=== PATIENT | male | born 1965 | race Caucasian/White ===

== ENCOUNTER 2016-06-10 10:40 | Emergency (ER) | payer MEDICAID ==
[~2016-06-10] VITALS: Ht 170.2 cm; Wt 80.0 kg
[2016-06-10 10:45] VITALS: BP 125/75; PULSE 108; RESP 16; TEMP 98; O2SAT 97
[2016-06-10] MEDS ORDERED: ALBUAER3 INH (11:30)
[2016-06-10] MEDS ORDERED: AMLO5TAB2 PO (11:30)
[2016-06-10] MEDS ORDERED: SYMB80AE INH (11:30)
[2016-06-10] MEDS ORDERED: SIMV40TA PO (11:30)
[2016-06-10] MEDS ORDERED: ALPR.25 PO (11:30)
[2016-06-10] MEDS ORDERED: ADDE10 PO (11:30)
[2016-06-10] MEDS ORDERED: VENTAER INH (11:44)
[2016-06-10] MEDS ORDERED: AZIT250T3 PO (11:44)
[2016-06-10] MEDS ORDERED: PROM6.256 PO (11:45)
--- NOTE | 2016-06-10 11:45 | PD ---
HPI Chief Complaint: Injury Time Seen by Provider: 11:39 Travel History International Travel<30 days: No Contact w/Intl Traveler<30days: No Traveled to known affect area: No History of Present Illness HPI Patient is a 51-year-old male presenting to the emergency department for evaluation of right hand pain as well as cough and cold symptoms. Patient states that a large tree branch fell on his right hand 3 days ago. 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 He denies any numbness or tingling, weakness. Patient states his cough is been ongoing for 5- 6 days, nonproductive, associated with a sore throat that is worse in the morning and improves throughout the day. He also reports the cough is worse at night when he is laying down. Patient has a history of asthma and is occurring daily tobacco user. He denies any wheezing, chest pain, shortness of breath, fever, chills, headache. PFSH Past Medical History ADD: Yes Asthma: Yes High Cholesterol: Yes COPD: Yes Hypertension: Yes Influenza Vaccination: No Social History Alcohol Use: No Tobacco Use: Yes (1 03/16 PPD) Substance Use: No Allergies-Medications (Allergen,Severity, Reaction): Coded Allergies: No Known Allergies (Unverified , 06/10/16) Reported Meds & Prescriptions Reported Meds & Active Scripts Active Lortab (Hydrocodone-Acetaminophen) 5-325 Mg Tab 1 Tab PO Q6H PRN Azithromycin 250 Mg Tab 250 Mg PO DIRECTED Take 2 tabs (500 mg) on day 1 then 1 tab daily x 4 days. Ventolin Hfa 18 GM Inh (Albuterol Sulfate) 90 Mcg/Act Aer 2 Puff INH Q4-6H PRN Reported Xanax (Alprazolam) 0.25 Mg Tab 0.25 Mg PO Q8H PRN Adderall (Amphetamine-Dextroamphetamine) 10 Mg Tab 10 Mg PO DIRECTED Take 10 mg in the morning & 5 mg (1/2 tab) at noon. Symbicort Inh (Budesonide/Formoterol Fumarate) 80-4.5 Mcg/Act Aero 1 Puff INH Q12HR Proair Hfa 8.5 GM Inh (Albuterol Sulfate) 90 Mcg/Act Aer 1 Puff INH Q4H PRN 108 mcg/actuation Simvastatin 40 Mg Tab 40 Mg PO HS Amlodipine (Amlodipine Besylate) 5 Mg Tab 5 Mg PO DAILY Review of Systems Except as stated in HPI: all other systems reviewed are Neg General / Constitutional: No: Fever, Chills HENT: Positive: Sore Throat, Rhinitis, No: Headaches Cardiovascular: No: Chest Pain or Discomfort Respiratory: Positive: Cough, No: Shortness of Breath, Wheezing, Pleuritic Pain Gastrointestinal: No: Nausea, Vomiting, Abdominal Pain Musculoskeletal: Positive: Myalgias, Arthralgias, Limited ROM, Edema, Pain Neurologic: No: Weakness, Dizziness, Syncope Physical Exam Narrative GENERAL: Well-developed, well-nourished, alert male. Resting comfortably in no acute distress. SKIN: Focused skin assessment warm/dry. HEAD: Atraumatic. Normocephalic. EYES: Pupils equal and round. No scleral icterus. No injection or drainage. ENT: No nasal bleeding or discharge. Mucous membranes pink and moist. Cobblestone appearance to posterior pharynx. NECK: Trachea midline. No JVD. CARDIOVASCULAR: Regular rate and rhythm. No murmur appreciated. RESPIRATORY: No accessory muscle use. Clear to auscultation. Breath sounds equal bilaterally. GASTROINTESTINAL: Abdomen soft, non-tender, nondistended. Hepatic and splenic margins not palpable. MUSCULOSKELETAL: No obvious deformities. No clubbing. No cyanosis. Edema noted to the dorsal aspect of the right hand over the second through fourth MCP. Decreased rocket engine tester strength on the right. Positive radial pulse, brisk less than 3 second capillary refill. NEUROLOGICAL: Awake and alert. No obvious cranial nerve deficits. Motor grossly within normal limits. Normal speech. PSYCHIATRIC: Appropriate mood and affect; insight and judgment normal. Data Data Last Documented VS Vital Signs Date Time Temp Pulse Resp B/P Pulse Ox O2 Delivery O2 Flow Rate FiO2 06/10/16 10:45 98.0 108 16 125/75 97 Orders Hand, Complete ([id number]) (06/10/16 ) [facility] Medical Decision Making Medical Screen Exam Complete: Yes Emergency Medical Condition: Yes Interpretation(s) Vital Signs Date Time Temp Pulse Resp B/P Pulse Ox O2 Delivery O2 Flow Rate FiO2 06/10/16 10:45 98.0 108 16 125/75 97 Differential Diagnosis Viral syndrome versus bronchitis versus asthma exacerbation versus upper respiratory infection versus fracture versus sprain versus strain versus contusion Narrative Course Patient is a 51-year-old male presenting to the emergency department for evaluation of cough and right hand pain. Physical exam revealed an edematous right hand with decreased rocket engine tester strength. Patient is neurovascularly intact. Additionally patient's exam appears most consistent with a viral upper respiratory infection however he is a smoker with a history of asthma, COPD. Patient will be provided with prescription for antibiotics as well as cough medication, and albuterol inhaler. Imaging of the right hand ordered and pending. X-ray of the right hand does not show any obvious fracture, patient needed to leave the emergency department to picker tender a friend. He was advised that the official read from the radiologist was not available at this time. X-ray was also reviewed by my attending physician. Patient was advised that if a fracture was identified by the radiologist he would be notified to return to emergency department for splinting. Patient was placed in an Bennett wrap for support. Patient verbalized understanding of these instructions. He was also encouraged to alternate heat and ice to the affected area, continue range of motion exercises, and avoid exacerbating activities. Patient is stable for discharge. After patient left the emergency department the official read on the right hand x-ray shows no acute fracture. Diagnosis Primary Impression: Upper respiratory infection Qualified Code: J06.9 - Upper respiratory tract infection, unspecified type Additional Impression: Hand contusion Qualified Code: S60.221A - Contusion of right hand, initial encounter Referrals: Primary Care Physician 1 week Patient Instructions: General Instructions, Upper Respiratory Infection (ED) Additional Instructions: Follow-up with your primary doctor Complete full course of antibiotics as directed Obtain achs-hni-kyiegua Mucinex DM or Sudafed or similar agent and use as directed and as needed Alternate heat and ice to the affected area Maintain adequate fluid intake Return to emergency department for any new or worsening symptoms Do not drive or operate heavy machinery while taking narcotic pain medication Med/Other Pt SpecificInfo: Prescription(s) given Scripts Hydrocodone-Acetaminophen (Lortab)5-325 Mg Tab1 Tab PO Q6H PRN (PAIN) #10 TAB Prov:Zahra Russo MD 06/10/16 Azithromycin 250 Mg [id number] Mg PO DIRECTED #6 TAB Ref 0 Take 2 tabs (500 mg) on day 1 then 1 tab daily x 4 days. Prov:Angeles Torre 06/10/16 Albuterol 18 GM Inh (Ventolin Hfa 18 GM Inh)90 Mcg/Act Aer2 Puff INH Q4-6H PRN ( SHORTNESS OF BREATH) #1 INHALER Ref 0 Prov:Angeles Torre 06/10/16 Disposition: 01 DISCHARGE HOME Condition: Stable Angeles Torre Jun 10, 2016 11:45
[2016-06-10] MEDS ORDERED: HYDR-3533 PO (12:43)
--- NOTE | 2016-06-10 12:55 | RADHPO ---
EXAM DATE/TIME: 06/10/2016 11:15 [place] COMPARISON: No previous studies available for comparison. INDICATIONS : Right hand pain and swelling mostly 4th-5th metacarpal area, tree limb fell on right hand. MEDICAL HISTORY : None. SURGICAL HISTORY : None. ENCOUNTER: Initial ACUITY: 3 days PAIN SCORE: 6/10 LOCATION: Right hand FINDINGS: There is no evidence of acute fracture. Bony mineralization is normal. 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 There is mild osteoarthritis involving the radiocarpal yaneli nt. CONCLUSION: 1. There is no evidence of acute fracture. Jimbo Marte MD on June 10, 2016 at 12:49 Board Certified Radiologist. This report was verified electronically.
== END 2016-06-10 15:14 | disposition home or self-care (01) ==
LOC: PHED 10:40 → PHEFT 15:14
DX: S60.221A Contusion of right hand, initial encounter (principal); J06.9 Acute upper respiratory infection, unspecified; J45.909 Unspecified asthma, uncomplicated; J44.9 Chronic obstructive pulmonary disease, unspecified; E78.00 Pure hypercholesterolemia, unspecified; I10 Essential (primary) hypertension; F17.200 Nicotine dependence, unspecified, uncomplicated; W20.8XXA Other cause of strike by thrown, projected or falling object, initial encounter; Z79.899 Other long term (current) drug therapy
CPT/HCPCS: 73130; 99283